=== PATIENT | male | born 1960 | race Caucasian/White ===

== ENCOUNTER 2018-09-19 19:01 | Emergency (ER) | payer MEDICAID, SELFPAY ==
[~2018-09-19] VITALS: Ht 182.9 cm; Wt 85.6 kg
[2018-09-19 19:11] VITALS: BP 167/105
== END 2018-09-19 20:33 | disposition home or self-care (01) ==
LOC: ED 20:27
DX: S43.52XA Sprain of left acromioclavicular joint, initial encounter (principal); S63.622A Sprain of interphalangeal joint of left thumb, initial encounter; S43.422A Sprain of left rotator cuff capsule, initial encounter; S20.211A Contusion of right front wall of thorax, initial encounter; V03.99XA Pedestrian with other conveyance injured in collision with car, pick-up truck or van, unspecified whether traffic or nontraffic accident, initial encounter; Y93.89 Activity, other specified; Y92.89 Other specified places as the place of occurrence of the external cause; Y99.8 Other external cause status
CPT/HCPCS: 71046; 99283

== ENCOUNTER 2018-11-26 11:16 | Emergency (ER) | payer MEDICAID ==
[~2018-11-26] VITALS: Ht 182.9 cm; Wt 89.5 kg
[2018-11-26 11:36] VITALS: BP 171/89
--- NOTE | 2018-11-26 12:10 | NUR ---
PT TO ROOM FROM LOBBY, GAIT STEADY
[2018-11-26] MEDS ORDERED: KETOROLAC 30 MG/1 ML ONE (13:16)
--- NOTE | 2018-11-26 13:23 | NUR ---
PT MEDICATED PER EMAR, TOLERATED WELL. PT A&O, RESPS EVEN AND UNLABORED. PT GIVEN DC INSTRUCTIONS. AMB TO DC DESK WITH STEADY GAIT, NADN.
[2018-11-26] MEDS ORDERED: KETOROLAC 30 MG/1 ML IM ONE (13:30)
== END 2018-11-26 13:24 | disposition home or self-care (01) ==
LOC: ED 13:14
DX: G89.11 Acute pain due to trauma (principal); M25.511 Pain in right shoulder
CPT/HCPCS: 73030; 96372; 99283; J1885

== ENCOUNTER 2021-01-29 11:11 | Emergency (ER) | payer MEDICAID ==
[~2021-01-29] VITALS: Ht 185.4 cm; Wt 85.0 kg
[2021-01-29 11:13] VITALS: BP 144/90
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
== END 2021-01-29 12:54 | disposition home or self-care (01) ==
LOC: ED 12:50
DX: S06.0X0A Concussion without loss of consciousness, initial encounter (principal); R94.31 Abnormal electrocardiogram [ECG] [EKG]; X58.XXXA Exposure to other specified factors, initial encounter; Y93.89 Activity, other specified; Y92.89 Other specified places as the place of occurrence of the external cause; Y99.8 Other external cause status
CPT/HCPCS: 29125; 93005; 99283

== ENCOUNTER 2021-02-05 17:46 | Emergency (ER) | payer MEDICAID ==
[~2021-02-05] VITALS: Ht 182.9 cm; Wt 87.0 kg
[2021-02-05 17:48] VITALS: BP 129/88
== END 2021-02-05 19:41 | disposition home or self-care (01) ==
LOC: ED 19:00
DX: S22.41XA Multiple fractures of ribs, right side, initial encounter for closed fracture (principal); S22.059A Unspecified fracture of T5-T6 vertebra, initial encounter for closed fracture; S22.069A Unspecified fracture of T7-T8 vertebra, initial encounter for closed fracture; M25.532 Pain in left wrist; R07.89 Other chest pain; Z72.9 Problem related to lifestyle, unspecified; V13.0XXA Pedal cycle driver injured in collision with car, pick-up truck or van in nontraffic accident, initial encounter; Y93.89 Activity, other specified; Y92.410 Unspecified street and highway as the place of occurrence of the external cause; Y99.8 Other external cause status
CPT/HCPCS: 29125; 71046; 99283